=== PATIENT | male | born 1965 | race Caucasian/White ===

== ENCOUNTER 2022-06-10 13:09 | Outpatient (CLI) | payer MEDICAID, SELFPAY ==
[2022-06-10 21:59] LABS: Albumin* 4.3 g/dL (3.3-5.0); Chloride* 91 mmol/L (96-114)
[2022-06-10 22:00] LABS: Potassium* 4.6 mmol/L (3.6-5.1); Sodium* 130 mmol/L (135-149)
[2022-06-10 22:02] LABS: Aspartate Amino Transferase* 31 U/L (12-35); Bilirubin Total* 0.4 mg/dL (0.1-1.5); Blood Urea Nitrogen* 7 mg/dL (7-30); Carbon Dioxide* 31 mmol/L (20-32); Cholesterol* 176 mg/dL (90-199); Creatinine* 0.6 mg/dL (0.5-1.5); Estimated Glomerular Filt Rate 113 ml/min; Total Protein* 6.7 g/dL (6.0-8.3)
[2022-06-10 22:03] LABS: Alanine Aminotransferase* 14 U/L (4-50); Alkaline Phosphatase* 42 U/L (40-150); Calcium* 9.4 mg/dL (8.4-10.6); Glucose* 90 mg/dL (60-115); HDL Cholesterol* 66 mg/dL (>=40); LDL Cholesterol Calculated 61 mg/dL (<100); Triglycerides* 245 mg/dL (40-149)
== END 2022-06-10 13:10 | disposition home or self-care (01) ==
PROVIDERS: PCP Family Medicine; Visit Provider Family Medicine
DX: Z00.00 Encounter for general adult medical examination without abnormal findings (principal); E87.1 Hypo-osmolality and hyponatremia; E78.1 Pure hyperglyceridemia; D64.9 Anemia, unspecified; I10 Essential (primary) hypertension
CPT/HCPCS: 80053; 80061

== ENCOUNTER 2022-06-19 12:58 | Outpatient (CLI) | payer MEDICAID, SELFPAY ==
[2022-06-19 21:28] LABS: Chloride* 92 mmol/L (96-114); Potassium* 4.4 mmol/L (3.6-5.1); Sodium* 128 mmol/L (135-149)
[2022-06-19 21:31] LABS: Blood Urea Nitrogen* 9 mg/dL (7-30); Carbon Dioxide* 28 mmol/L (20-32); Creatinine* 0.7 mg/dL (0.5-1.5); Estimated Glomerular Filt Rate 108 ml/min; Glucose* 82 mg/dL (60-115)
[2022-06-19 21:32] LABS: Calcium* 9.1 mg/dL (8.4-10.6)
== END 2022-06-19 12:59 | disposition home or self-care (01) ==
LOC: FRMREF 12:59
PROVIDERS: PCP Family Medicine; Visit Provider Family Medicine
DX: E87.1 Hypo-osmolality and hyponatremia (principal)
CPT/HCPCS: 80048

== ENCOUNTER 2022-06-27 11:47 | Outpatient (CLI) | payer MEDICAID, SELFPAY ==
[2022-06-27 21:56] LABS: Chloride* 93 mmol/L (96-114); Potassium* 4.3 mmol/L (3.6-5.1); Sodium* 127 mmol/L (135-149)
[2022-06-27 21:59] LABS: Blood Urea Nitrogen* 6 mg/dL (7-30); Carbon Dioxide* 28 mmol/L (20-32); Creatinine* 0.6 mg/dL (0.5-1.5); Estimated Glomerular Filt Rate 113 ml/min; Glucose* 108 mg/dL (60-115)
[2022-06-27 22:00] LABS: Calcium* 9.2 mg/dL (8.4-10.6)
[2022-06-27 22:18] LABS: Sodium Urine Random* 37
[2022-06-27 22:33] LABS: TSH With Reflex to FT4* 0.497 uIU/mL (0.270-4.200)
== END 2022-06-27 11:48 | disposition home or self-care (01) ==
PROVIDERS: PCP Family Medicine; Visit Provider Family Medicine
DX: E78.1 Pure hyperglyceridemia (principal); F10.10 Alcohol abuse, uncomplicated; J44.9 Chronic obstructive pulmonary disease, unspecified; R63.4 Abnormal weight loss; Z72.0 Tobacco use; E87.1 Hypo-osmolality and hyponatremia; I10 Essential (primary) hypertension
CPT/HCPCS: 80048; 83935; 84300; 84443

== ENCOUNTER 2023-03-18 11:32 | Outpatient (CLI) | payer MEDICAID, SELFPAY | END 2023-03-18 11:33 | disposition home or self-care (01) | PROVIDERS: PCP Family Medicine; Visit Provider Family Medicine | DX: Z00.00 Encounter for general adult medical examination without abnormal findings (principal); E83.42 Hypomagnesemia; D64.9 Anemia, unspecified; R60.0 Localized edema; I10 Essential (primary) hypertension; I48.92 Unspecified atrial flutter; F10.10 Alcohol abuse, uncomplicated | CPT/HCPCS: 80053; 83735 ==

== ENCOUNTER 2023-04-03 11:12 | Outpatient (CLI) | payer OTHER, MEDICAID, SELFPAY | END 2023-04-03 11:13 | disposition home or self-care (01) | LOC: FRMREF 11:13 | PROVIDERS: PCP Family Medicine; Visit Provider Family Medicine | DX: Z00.00 Encounter for general adult medical examination without abnormal findings (principal); E87.1 Hypo-osmolality and hyponatremia | CPT/HCPCS: 80053 ==

== ENCOUNTER 2023-04-29 12:16 | Outpatient (CLI) | payer OTHER, MEDICAID, SELFPAY | END 2023-04-29 12:17 | disposition home or self-care (01) | PROVIDERS: PCP Family Medicine; Visit Provider Family Medicine | DX: Z00.00 Encounter for general adult medical examination without abnormal findings (principal); E83.42 Hypomagnesemia; E78.1 Pure hyperglyceridemia; E87.1 Hypo-osmolality and hyponatremia | CPT/HCPCS: 80053; 83735 ==

== ENCOUNTER 2023-06-30 14:10 | Outpatient (CLI) | payer OTHER, MEDICAID, SELFPAY | END 2023-06-30 14:11 | disposition home or self-care (01) | PROVIDERS: PCP Family Medicine; Visit Provider Family Medicine | DX: E83.42 Hypomagnesemia (principal); E87.1 Hypo-osmolality and hyponatremia; E78.1 Pure hyperglyceridemia; I10 Essential (primary) hypertension; D64.9 Anemia, unspecified | CPT/HCPCS: 80053; 83735 ==